=== PATIENT | female | born 1950 | race Caucasian/White ===

== ENCOUNTER 2019-10-31 04:59 | Observation (INO) ==
--- NOTE | 2019-10-17 14:44 | PAT Medication Instructions ---
Medication Instructions Date of Service October 17, 2019 Home Medications alprazolam 0.25 mg tablet 0.25 mg PO BID PRN diltiazem HCl 180 mg capsule,extended release 24 hr, controlled 180 mg PO QAM escitalopram oxalate 10 mg tablet 10 mg PO QAM hydrochlorothiazide 50 mg tablet 50 mg PO QAM pantoprazole 40 mg tablet,delayed release 40 mg PO QAM cyanocobalamin (vitamin B-12) 1,000 mcg PO QAM metformin 500 mg PO QAM potassium chloride [Klor-Con 10] 20 meq PO BID DO NOT take the morning of surgery hydrochlorothiazide 50 mg tablet 50 mg PO QAM cyanocobalamin (vitamin B-12) 1,000 mcg PO QAM metformin 500 mg PO QAM potassium chloride [Klor-Con 10] 20 meq PO BID Take morning of surgery With a small sip of water, OTHERWISE NOTHING TO EAT OR DRINK AFTER MIDNIGHT: alprazolam 0.25 mg tablet 0.25 mg PO BID PRN (if needed) diltiazem HCl 180 mg capsule,extended release 24 hr, controlled 180 mg PO QAM escitalopram oxalate 10 mg tablet 10 mg PO QAM pantoprazole 40 mg tablet,delayed release 40 mg PO QAM Take evening before surgery alprazolam 0.25 mg tablet 0.25 mg PO BID PRN (if needed) potassium chloride [Klor-Con 10] 20 meq PO BID Other Notes If you have any questions please call us at [phone] or [phone] or [phone] or [phone]
--- NOTE | 2019-10-18 12:43 | Anesthesiology Consultation ---
Date of Service October 18, 2019 Assessment & Plan (1) Encounter for pre-operative examination: COVID Status: As of 10/17 [facility] assessment, patient denies travel to endemic area, known exposure/sick contacts, or symptoms of COVID19. Preoperative COVID19 testing to be completed on 10/26. Chart Review Chart Review: Acceptable Risk for Surgery and Patient seen in Pre Admission Testing Teaching & Discussion Instructed NPO after midnight before surgery, except medications with 15 cc of water. Medication instructions provided according to the [facility] guidelines. History Surgery Operation Date: 10/31/19 07:15 Proposed Procedures p Right Total Knee Arthroplasty - Alberto Fonseca DO Height/Weight Height: 5 ft 5 in Weight: 82.9 kg Allergies Allergy/AdvReac Type Severity Reaction Status Date / Time No Known Allergies Allergy Verified 10/13/19 09:07 Medications Home Medications Medication Instructions Recorded Confirmed Last Taken alprazolam 0.25 mg tablet 0.25 mg PO BID PRN 07/19/19 10/13/19 Unknown diltiazem HCl 180 mg 180 mg PO QAM 07/19/19 10/13/19 Unknown capsule,extended release 24 hr, controlled escitalopram oxalate 10 mg tablet 10 mg PO QAM 07/19/19 10/13/19 Unknown hydrochlorothiazide 50 mg tablet 50 mg PO QAM 07/19/19 10/13/19 Unknown pantoprazole 40 mg tablet,delayed 40 mg PO QAM 07/19/19 10/13/19 Unknown release cyanocobalamin (vitamin B-12) 1,000 mcg PO QAM 10/13/19 10/13/19 Unknown [Vitamin B-12] metformin 500 mg PO QAM 10/13/19 10/13/19 Unknown potassium chloride [Klor-Con 10] 20 meq PO BID 10/13/19 10/13/19 Unknown Past Medical History Medical History (Updated 10/19/19 @ 09:13 by Rohit Oliva) Anxiety Cardiac murmur Patient reports remote h/o echo, ~2004. Very soft I/ mitral area on exam at [facility]. Chronic vomiting reports vomiting 2-3 x per week after eating x 3 years r/t delayed esophageal emptying Depression Esophageal abnormality delayed esophageal emptying History of gastric ulcer HTN (hypertension) Osteoarthritis Prediabetes on Metformin Tinnitus Exercise / Class Metabolic Activity II 4-5 Yardwork/Stairs/Walk up hill (Denies CP or SOB with 1 FOS) Past Family History Family History Mother Diabetes Other No family history of adverse response to anesthesia Past Surgical History Surgical History H/O tubal ligation History of arthroscopy of left knee History of bladder suspension procedure History of colonoscopy History of D&C History of esophagogastroduodenoscopy (EGD) History of gastric bypass History of tooth extraction Hx of breast reduction, elective Past Anesthesia History No Hx of Anesthesia Complications and No Family Hx of Anesthesia Complications History of PONV No Hx of PONV and No Hx of Motion Sickness Social History Smoking Status: Never smoker Do You Dip or Chew Tobacco: No Hx Alcohol Use: No Hx Substance Use: No substance use type: does not use Review of Systems Pt denies any recent chest pain, shortness of breath, palpitations, cough, fever or URI. +vomiting and +reflux, chronic Physical Exam Vital Signs BP: 131/79 P: 73bpm SPO2: 98% RA T: 98.1 F R: 16 ENMT Mouth: + dental restorations (rear L molar capped) and + chipped teeth (front incisors); no loose teeth Thyromental Distance: > or= 3.5 Finger Breadths (3.5) Mallampati Class: II Neck normal visual inspection; neck extension not limited Respiratory normal respiratory effort Auscultation: lungs clear to auscultation bilaterally Cardiovascular Rate/Rhythm: regular rate and regular rhythm Heart Sounds: + murmur (I/ systolic mitral area) Extremities: no edema Testing Laboratory Results 10/18/19 12:35 10/18/19 12:35 PT 10.8 Seconds (9.0-12.0) 10/18/19 12:35 INR 1.0 (0.9-1.1) 10/18/19 12:35 APTT 26.8 Seconds (21.0-31.0) 10/18/19 12:35 Hemoglobin A1c 5.9 % (4.5-5.6) H 10/18/19 12:35 Blood Type O Positive 10/18/19 12:35 Antibody Screen NEGATIVE 10/18/19 12:35 Electrocardiogram Date: 10/18/19 Findings: + SB @ (58bpm with 1st degree AV block) Low voltage QRS. Chest X-Ray Date: 10/18/19 Findings: + NAD
[2019-10-18 13:07] LABS: Basophils # (auto) 0.02 K/uL (0-0.2); Basophils % (auto) 0.4 %; Eosinophils # (auto) 0.07 K/uL (0-0.5); Eosinophils % (auto) 1.3 %; Hematocrit (blood only) 41.9 % (37-47); Immature Granulocytes # (auto) 0.01 K/uL (0.00-0.02); Immature Granulocytes % (auto) 0.2 %; Lymphocytes # (auto) 2.05 K/uL (1.2-3.4); Lymphocytes % (auto) 37.8 %; Mean Corpuscular Hemoglobin 29.9 pg (25-34); Mean Corpuscular Hgb Conc 33.4 g/dL (32-36); Mean Corpuscular Volume 89.5 fL (80-100); Mean Platelet Volume 11.8 fL (7.4-10.4); Monocytes % (auto) 9.2 %; Neutrophils # (auto) 2.77 K/uL (1.4-6.5); Neutrophils % (auto) 51.1 %; Platelet Count 225 K/uL (130-400); RDW Coefficient of Variation 15.1 % (11.5-14.5); RDW Standard Deviation 48.8 fL (36.4-46.3); Red Blood Count 4.68 M/uL (4.2-5.4); White Blood Count 5.42 K/uL (4.8-10.8)
[2019-10-18 13:20] LABS: Partial Thromboplastin Time 26.8 Seconds (21.0-31.0); Prothrombin Time 10.8 Seconds (9.0-12.0)
[2019-10-18 13:24] LABS: Estimated Average Glucose 123 mg/dl; Hemoglobin A1C 5.9 % (4.5-5.6)
--- NOTE | 2019-10-18 13:46 | XRay Report ---
XR chest Pre-admission PA/Lat HISTORY: 69 years-old Female pat preoperative exam. No acute chest complaints COMPARISON: None TECHNIQUE: PA and lateral views of the chest FINDINGS: Cardiomediastinal and hilar silhouettes are within normal limits. No pneumothorax, pleural effusion, airspace consolidation or overt pulmonary edema. Bones of the chest are grossly intact. Surgical clip s project over the epigastric distribution. IMPRESSION: No acute process. ACT 112: Negative or not required by law. The above report was generated using voice recognition software. It may contain grammatical, syntax o r spelling errors. Electronically signed by: Foster Mansfield M.D. 10/18/2019 1:44 PM
[2019-10-18 14:44] LABS: BUN Creatinine Ratio 18.1 (10-20); Calcium 9.4 mg/dl (8.5-10.1); Creatinine Clr Calc Pharmacy 66.4 ml/min; Est GFR (Non-African American) 69.9; Potassium 3.2 mmol/L (3.5-5.1)
--- NOTE | 2019-10-19 06:03 | Electrocardiogram Report ---
Test Reason : Blood Pressure : / mmHG Vent. Rate : 058 BPM Atrial Rate : 058 BPM P-R Int : 214 ms QRS Dur : 090 ms QT Int : 424 ms P-R-T Axes : 056 039 058 degrees QTc Int : 416 ms Sinus bradycardia with 1st degree A-V block Low voltage QRS Borderline ECG No previous ECGs available Confirmed by Juve Dolan ([id number]) on 10/19/2019 6:03:12 AM Referred By: Alberto Fonseca Confirmed By:Juve Dolan
--- NOTE | 2019-10-30 07:54 | History & Physical Report ---
Date of Service October 30, 2019 Assessment & Plan (1) Osteoarthritis of right knee: We will proceed with a right total knee arthroplasty. Postoperatively she will be started on aspirin for DVT prophylaxis and kept overnight in the hospital for postoperative medical management. She plans to use energy physical therapy upon discharge. Iesha is a low risk for joint replacement surgery. She does not have any major comorbidities. Present on Admission?: Yes History of Present Illness Chief Complaint: Primary osteoarthritis of the right knee Primary Care Provider: Phan Julian is a pleasant 69-year-old female who is been dealing with a 4 to 5-year history of increasing right knee pain. She is difficult time going up and down stairs. X-rays and clinical examination have been diagnostic for advanced osteoarthritis of the right knee. She has failed extensive conservative treatment and has elected to proceed with a right total knee arthroplasty. Allergies Allergy/AdvReac Type Severity Reaction Status Date / Time No Known Allergies Allergy Verified 10/13/19 09:07 Home Medications Home Medications Medication Instructions Recorded Confirmed Type alprazolam 0.25 mg tablet 0.25 mg PO BID PRN 07/19/19 10/13/19 History diltiazem HCl 180 mg 180 mg PO QAM 07/19/19 10/13/19 History capsule,extended release 24 hr, controlled escitalopram oxalate 10 mg tablet 10 mg PO QAM 07/19/19 10/13/19 History hydrochlorothiazide 50 mg tablet 50 mg PO QAM 07/19/19 10/13/19 History pantoprazole 40 mg tablet,delayed 40 mg PO QAM 07/19/19 10/13/19 History release cyanocobalamin (vitamin B-12) 1,000 mcg PO QAM 10/13/19 10/13/19 History [Vitamin B-12] metformin 500 mg PO QAM 10/13/19 10/13/19 History potassium chloride [Klor-Con 10] 20 meq PO BID 10/13/19 10/13/19 History Past Med/Surg History Medical History Anxiety Cardiac murmur Patient reports remote h/o echo, ~2004. Very soft I/ mitral area on exam at [facility]. Chronic vomiting reports vomiting 2-3 x per week after eating x 3 years r/t delayed esophageal emptying Depression Esophageal abnormality delayed esophageal emptying History of gastric ulcer HTN (hypertension) Osteoarthritis Prediabetes on Metformin Tinnitus Surgical History H/O tubal ligation History of arthroscopy of left knee History of bladder suspension procedure History of colonoscopy History of D&C History of esophagogastroduodenoscopy (EGD) History of gastric bypass History of tooth extraction Hx of breast reduction, elective Family History Mother Diabetes Other No family history of adverse response to anesthesia Social History Preferred Language: Luxembourgish Communication Ability: Effective Fleet Driver Required: No Beliefs That Will Affect Care: None Current Living Situation: Spouse and Family Current Living Situation Comment: lives with , dtr, grand dtr Feels Safe at Home: Yes Safety Concerns: Feels Safe At This Time Smoking Status: Never smoker Do You Dip or Chew Tobacco: No ; Second Hand Exposure: Yes (as a child) ; Hx Alcohol Use: No Hx Substance Use: No Review of Systems Review of Systems: All systems reviewed & are unremarkable except as noted in HPI & below Physical Exam Constitutional: WD/WN, vitals as above Eyes: PERRL, conjunctivae normal, anicteric sclerae ENMT: external ear and nose normal, oropharynx normal Neck: trachea midline, no thyromegaly Respiratory: normal respiratory effort Cardiovascular: RRR, no murmur, no edema Gastrointestinal (Abdomen): normal bowel sounds, soft, nontender, no hepatosplenomegaly Musculoskeletal: On physical examination of the right knee there is a trace effusion. There is near full range of motion and no evidence of instability. There is significant tenderness palpation along the medial and lateral joint lines and over the distal femoral condyles. Psychiatric: A+Ox3, euthymic affect Results & Data Results & Data ([facility]) Diagnostic Findings Radiographs of the right knee demonstrate advanced osteoarthritis with joint space narrowing osteophyte formation and [id number] articulation. PG Care Time/CCT Total # of Minutes Spent Total Time Spent with Patient: Total time spent is greater than 50% in coordination of care (as documented) at patient's floor/unit and/or counseling patient: Coding Level of Care Code 12573 Initial Inpt Care Lvl 3 Diagnoses Osteoarthritis of right knee M17.11
[2019-10-31] MEDS ORDERED: dexAMETHasone 4 MG TAB PO SCH (06:00)
[2019-10-31] MEDS ORDERED: LR 60ML/HR IV SCH (06:00)
[2019-10-31] MEDS ORDERED: FAMOTIDINE 20 MG TAB PO SCH (06:00)
[2019-10-31] MEDS ORDERED: ROPIVACAINE 0.5% HCL/PF 150 MG, BUPIVACAINE 0.5% MPF 30 ML, EPINEPHrine 30MG/30ML (OR U... INSTIL SCH (06:00)
[2019-10-31] MEDS ORDERED: LR 500ML BOLUS, THEN 15ML/HR IV SCH (06:00)
[2019-10-31] MEDS ORDERED: CEFAZOLIN 2000MG 2,000 MG/15 ML SYR IV SCH (06:00)
[2019-10-31] MEDS ORDERED: TRANEXAMIC ACID 1,000 MG **IV Intra-op IV SCH (06:00)
[2019-10-31] MEDS ORDERED: GABAPENTIN 300 MG CAP PO SCH (06:00)
[2019-10-31] MEDS ORDERED: ACETAMINOPHEN 500 MG TAB PO SCH (06:00)
[2019-10-31] MEDS ORDERED: TRANEXAMIC ACID 1,000 MG **IV Pre-op IV SCH (06:00)
[2019-10-31] MEDS ORDERED: BUPIVACAINE 0.5 % 5 MG/1 ML PF 10ML VIAL ONE (06:21)
[2019-10-31] MEDS ORDERED: EPINEPHrine INJ 1 MG/ML AMP ONE (06:21)
[2019-10-31] MEDS ORDERED: ROPIVACAINE 0.5% 5 MG/ML 30 ML VIAL ONE (06:22)
[2019-10-31] MEDS ORDERED: MIDAZOLAM HCL 1 MG/ML 2ML VIAL ONE (06:27)
[2019-10-31] MEDS ORDERED: ONDANSETRON INJ 2 MG/ML 2 ML VIAL ONE (06:30)
[2019-10-31] MEDS ORDERED: LIDOCAINE HCL 2% 2 ML VIAL/AMP(20MG/ML) INFIL ONE (06:30)
[2019-10-31] MEDS ORDERED: PROPOFOL IV EMULSION 10 MG/ML 20 ML VIAL IV ONE ×2 (06:30→08:34)
[2019-10-31] MEDS ORDERED: GLYCOPYRROLATE 0.2 MG/ML VIAL ONE (06:30)
[2019-10-31] MEDS ORDERED: DEXAMETHASONE SOD INJ 4 MG/ML VIAL ONE (06:30)
[2019-10-31] MEDS ORDERED: ORTHO JOINT ANESTHETIC ONE (07:00)
[2019-10-31] MEDS ORDERED: HYDROmorphone INJ 1 MG/ML SYRINGE IV PRN (07:29)
[2019-10-31] MEDS ORDERED: ONDANSETRON INJ 2 MG/ML 2 ML VIAL IV PRN ×2 (07:29→10:32)
[2019-10-31] MEDS ORDERED: LABETALOL HCL IV 5 MG/ML 20ML IV PRN (07:29)
[2019-10-31] MEDS ORDERED: ATROPINE SULFATE 0.1 MG/ML 10ML SYR IV PRN (07:29)
[2019-10-31] MEDS ORDERED: ePHEDrine sulfate 50 MG/ML AMP IV PRN (07:29)
[2019-10-31] MEDS ORDERED: MEPERIDINE HCL 25 MG/ML CARP/VIAL IV PRN (07:29)
[2019-10-31] MEDS ORDERED: fentaNYL citrate 100 MCG/2 ML VIAL IV PRN (07:29)
[2019-10-31] MEDS ORDERED: PHENYLEPHRINE 100MCG/ML 5ML SYR IV PRN (07:29)
--- NOTE | 2019-10-31 09:00 | Operative Report ---
PG Post Operative Report Pre & Post Diagnosis Operation Date: 10/31/19 07:15 Pre-Op Diagnosis: Degenerative Joint Disease Right Knee Post-Op Diagnosis: Degenerative Joint Disease Right Knee I identified the patient and participated in the time-out.: Yes Procedure Operation Date: 10/31/19 07:15 Actual Procedures p Right Total Knee Arthroplasty(Right) - Alberto Fonseca DO Surgeon Alberto Fonseca DO Assistant Prosecuting Attorney Alberto Manuel PAC Estimated Blood Loss 10 Findings Consistent with Post-Op Diagnosis Specimens Right femoral and tibial bone Complications none Disposition Disposition: Recovery Room Indications Iesha is a pleasant 69-year-old female who presented my office with increasing right knee pain. X-rays and clinical examination were diagnostic for advanced osteoarthritis of the right knee. After failing conservative treatment, she elected proceed with a right total knee arthroplasty. Description of Procedure Implants used: I used a [employer] Persona total knee arthroplasty system with a size 11 narrow femur, F tibia, 32 patella, and a size 11 medial congruent polyethylene bearing. All components were cemented in place with Palacos G cement. Iesha arrived [facility] for the above procedure. She was seen in the preoperative holding area and the operative extremity was identified and signed. She was given a preoperative antibiotic, TXA, a spinal anesthetic a nd an adductor nerve block. She was taken back to the operating room and laid on the table in supine position. She was given basic sedation. The operative knee was then prepped and draped in sterile fashion. A timeout was done, and the patient and the operative extremity was properly identified. A midline incision was made directly over the patella. Dissection was taken down to the extensor mechanism. A subvastus arthrotomy was used. The medial retinaculum was released and the fat pad was mostly excised. The knee was flexed and the ACL, PCL, and meniscus were removed. A drill was sent down the center of the femoral canal followed by an intramedullary henrik. Off that henrik a distal femoral cutting block was placed. 9 mm was resected off the distal femur at 5 of valgus. A posterior referencing AP sizing guide was then placed on the distal femur. The femur measured to be a size 11 narrow. 2 drill holes were placed in 3 of external rotation. A 4-in-1 cutting block was then impacted into place. Anterior, posterior, and chamfer cuts were then made. The proximal tibia was then exposed. An external tibial alignment guide was placed. A tibial cut guide was then anchored in place to resect 2 mm off the low medial side. The proximal tibia was then resected. The tibia measured to be a size F. The tibial plate was then placed in the appropriate rotation and the tibia was drilled and punched. The posterior aspect of the knee was then opened up and any additional meniscus fragments and osteophytes were removed. Trial components were then placed. I used a size 11 medial congruent polyethylene insert. The knee was brought through a full range of motion and felt to be stable. The patella was then everted and 8 mm was resected off the posterior aspect of the patella. The patella measured to be a size 32. 3 peg holes were then drilled. A trial patella was placed. The knee was once again brought through a full range of motion and felt to be stable. Trial components were then removed. The surrounding soft tissues were injected with 100 cc of an orthopedic pain control cocktail. All components were then cemented into place with Palacos G cement. The final polyethylene insert was then snapped into place and the anterior bar was locked. Once cement was dry the tourniquet was deflated. Hemostasis was obtained. A dilute betadyne lavage was then done for 3 minutes. The joint was then irrigated with normal saline solution. The subvastus arthrotomy was then closed with #1 Vicryl suture. The skin was closed with 2-0 Vicryl, 3-0V lock suture, and ron. A soft compressive dressing was placed. She was then transferred to a hospital bed and taken to the postanesthesia care unit in stable condition. She tolerated the procedure well. Alberto Manuel PA-C, was present for the entire procedure. He was critical for patient positioning, prepping, draping, retraction exposure, wound closure and application of sterile dressing. I attest to the content of the Intraoperative Record and any orders documented therein. Any exceptions are noted below.
--- NOTE | 2019-10-31 09:45 | XRay Report ---
TWO VIEWS RIGHT KNEE CLINICAL HISTORY: Postoperative examination. FINDINGS: AP and crosstable lateral portable views of the right knee are obtained. A right knee arthr oplasty is in near anatomic alignment. There has been undersurface remodeling of the patella. No acut e fracture is seen. There are expected postoperative changes around the knee including skin clips, so ft tissue edema, and subcutaneous gas. IMPRESSION: Expected postoperative changes status post right knee arthroplasty. No acute fracture is seen. ACT 112: Negative or not required by law. Electronically signed by: Ivan Tirado M.D. 10/31/2019 9:43 AM
--- NOTE | 2019-10-31 09:52 | Anesthesiology Progress Note ---
Date of Service October 31, 2019 Anesthesia Post Procedure Vital Signs Vital Signs: Temp Pulse Pulse Resp BP Pulse Ox 10/31/19 09:50 36.5 C 63 16 100/51 L 97 10/31/19 09:40 60 16 100/53 L 96 10/31/19 09:30 69 16 97/61 L 96 10/31/19 09:20 66 16 103/51 L 95 10/31/19 09:12 36.5 C 69 16 99/53 L 97 10/31/19 07:13 37.6 C H 10/31/19 06:00 55 L 18 126/63 99 10/31/19 05:31 36.7 C 55 L 18 133/73 99 Transfer of Care Handoff Completed per policy Notes Mental Status: alert / awake / arousable Patient Amnestic to Procedure: Yes Nausea / Vomiting: adequately controlled Pain: adequately controlled Airway Patency, RR, SpO2: stable & adequate BP & HR: stable & adequate Hydration State: stable & adequate Neuraxial Anesthesia: was administered and sensory block is resolving Anesthetic Complications: no major complications apparent and Pt Satisfied with anesthetic care
[2019-10-31] MEDS ORDERED: OXYCODONE HCL IR 5 MG TAB (IMMEDIATE RELEASE) PO PRN (10:32)
[2019-10-31] MEDS ORDERED: NALOXONE HCL 0.4 MG/1 ML VIAL/CARP IV PRN (10:32)
[2019-10-31] MEDS ORDERED: METOCLOPRAMIDE HCL INJ 5 MG/ML 2 ML VIAL IV PRN (10:32)
[2019-10-31] MEDS ORDERED: bisacodyL 10 MG SUPP PR PRN (10:32)
[2019-10-31] MEDS ORDERED: MAGNESIUM HYDROXIDE SUSP 30 ML UDC PO PRN (10:32)
[2019-10-31] MEDS ORDERED: HYDROmorphone INJ 0.5 MG/0.5 ML SYR IV PRN (10:32)
[2019-10-31] MEDS ORDERED: PHARMACY GLYCEMIC MGMT CONSULT PRN (10:44)
--- NOTE | 2019-10-31 11:07 | Pharmacy Report ---
Glycemic Control Consultation - Date of Service October 31, 2019 - Scope Scope: Glycemic Pharmacist consulted for glycemic control and to write orders per [facility] inpatient glycemic control protocol. - Objective Weight: 83.546 kg Accuchecks BSG (last 24hrs): 10/31/19 05:29 POC Glucose 112 H HbA1c: Hemoglobin A1c 5.9 % (4.5-5.6) H 10/18/19 12:35 - Recent Pertinent Medications Outpatient Anti-diabetic Regimen: * Metformin 500mg PO QAM Risk Factors for Insulin Resistance: * Steroids * Recent Surgery * Diet - Assessment & Plan Assessment & Plan: ASSESSMENT: * 69yo T2DM female with excellent outpatient control per recent A1c * Pt is maintained on oral antidiabetic agents as an outpatient (metformin monotherapy) * Oral agents are not recommended for inpatient use d/t drug interactions, changing PO intake, and difficulty titrating for acute hyper/hypoglycemia. ADA recommends re-initiating outpatient oral agents 1-2 days prior to discharge if/when appropriate if they were held on admission. * Will hold oral agents for admission and utilize SQ basal bolus insulin regimen which is the recommended regimen for inpatient glycemic control. * Will initiate weight based insulin dosing for steroid induced hyperglycemia and titrate based on BSG trends. * Will start with conservative dosing since pre-op BSG < 150 PLAN FOR INPATIENT GLYCEMIC CONTROL: * Holding outpatient oral diabetes medications * Steroid induced hyperglycemia * NPH 10 units (~0.2 units/kg) SQ x 1 dose today. May need supplemental dose tomorrow AM with Dexamethasone order - will reassess based on BSGs over the next 24hrs * Bolus insulin- to be used while metformin on hold * NovoLog per scale ACHS or Q6hrs while NPO * Goal Range: Low 100 mg/dL - High 140 mg/dL * Correction Factor: 30 mg/dL/unit * Nutritional / Prandial insulin per carb ratio of 1 unit per 9 grams CHO consumed * Please note that the plan above was derived based on current level of insulin resistance and hospital stress. These recommendations are appropriate for inpatient admission only. Plan of care upon discharge will need to be reassessed to avoid potential outpatient hypo/hyperglycemia. Thank you.
[2019-10-31] MEDS ORDERED: NovoLIN-N (NPH) PER UNIT CHARGE SQ ONE (11:30)
[2019-10-31] MEDS ORDERED: GLUCOSE 10 TABS/TUBE PO PRN (12:15)
[2019-10-31] MEDS ORDERED: CARBOHYDRATES FOR HYPOGLYCEMIA PO PRN (12:15)
[2019-10-31] MEDS ORDERED: DEXTROSE 50% 50 ML SYRINGE IV PRN (12:15)
[2019-10-31] MEDS ORDERED: GLUCOSE 40% GEL 15 GM TUBE PO PRN (12:15)
[2019-10-31] MEDS ORDERED: GLUCAGON FOR INJ 1 MG VIAL IM PRN (12:15)
[2019-10-31] MEDS: SODIUM CHLORIDE 0.9% 1000ML 1,000 ML IV SCH ×2 (12:34→22:49)
[2019-10-31] MEDS: KETOROLAC TROMETHAMINE 15 MG/ML VIAL IV SCH ×3 (12:35→23:46)
[2019-10-31] MEDS: INSULIN ASPART 100 UNITS/ML 3 ML PEN SC SCH ×3 (13:21→21:10)
[2019-10-31] MEDS: ACETAMINOPHEN 500 MG TAB PO SCH ×2 (14:17→21:13)
[2019-10-31] MEDS: CEFAZOLIN 2000MG 2,000 MG/15 ML SYR IV SCH ×2 (17:24→23:48)
[2019-10-31] MEDS: POTASSIUM CHLORIDE 20 MEQ TABCR PO SCH (21:13)
[2019-10-31] MEDS: DOCUSATE SODIUM 100 MG CAP PO SCH (21:13)
[2019-10-31] MEDS: SENNA 8.6 MG TAB PO SCH (21:13)
[2019-10-31] MEDS: ASPIRIN 81 MG ECTAB PO SCH (21:13)
[2019-10-31] MEDS: ALPRAZolam 0.25 MG TABLET PO PRN (23:58)
[2019-11-01] MEDS: KETOROLAC TROMETHAMINE 15 MG/ML VIAL IV SCH ×4 (05:31→23:53)
[2019-11-01] MEDS: ACETAMINOPHEN 500 MG TAB PO SCH ×3 (05:31→22:15)
--- NOTE | 2019-11-01 07:00 | Orthopedic Progress Note ---
Date of Service November 01, 2019 Assessment & Plan (1) History of total right knee replacement: Overall she is doing very well. She is not having too much pain in the right knee. She is on aspirin for DVT prophylaxis. She will be seen by physical therapy later today. We will keep her in the hospital today for pain control and therapy for her knee. I will see her tomorrow morning and likely discharge her to home. Present on Admission?: Yes Subjective Iesha was seen and examined at bedside this morning. Overall she is doing very well. She is not in too much pain in the right knee. She has been up and a mbulating around the room. She has no complaints. Physical Exam Musculoskeletal: On physical examination of the right knee, the dressing is clean and dry. Her legs out in full extension. She has active dorsiflexion and plantarflexion of her right ankle. Sensations intact throughout. Results & Data ([facility]) Vital Signs (Past 12 Hours) Vital Signs Temp Pulse Resp BP Pulse Ox 11/01/19 03:34 36.5 C 71 15 131/76 96 10/31/19 23:48 36.4 C L 62 14 131/81 96 10/31/19 19:32 36.3 C L 66 16 137/81 97 Laboratory Results H & H 10/18/19 Range/Units 12:35 Hgb 14.0 (12.0-16.0) g/dL Hct 41.9 (37-47) % Coagulation 10/18/19 Range/Units 12:35 INR 1.0 (0.9-1.1) Diagnostic Findings Postoperative x-rays of the right knee show the prosthesis to be in anatomic alignment without any evidence of fracture, dislocation, or loosening. PG Care Time/CCT Total # of Minutes Spent Total Time Spent with Patient: Total time spent is greater than 50% in coordination of care (as documented) at patient's floor/unit and/or counseling patient: Coding Level of Care Code None Diagnoses History of total right knee replacement Z96.651
[2019-11-01 07:12] LABS: Hematocrit (blood only) 37.2 % (37-47); Hemoglobin 12.3 g/dL (12.0-16.0); Mean Corpuscular Hemoglobin 29.7 pg (25-34); Mean Corpuscular Hgb Conc 33.1 g/dL (32-36); Mean Corpuscular Volume 89.9 fL (80-100); Platelet Count 215 K/uL (130-400); RDW Standard Deviation 49.4 fL (36.4-46.3); Red Blood Count 4.14 M/uL (4.2-5.4); White Blood Count 13.12 K/uL (4.8-10.8)
[2019-11-01 07:41] LABS: BUN Creatinine Ratio 16.1 (10-20); Calcium 8.5 mg/dl (8.5-10.1); Creatinine Clr Calc Pharmacy 71.7 ml/min; Est GFR (African American) 88.5; Est GFR (Non-African American) 76.4; Potassium 3.8 mmol/L (3.5-5.1)
[2019-11-01] MEDS ORDERED: dexAMETHasone 4 MG TAB PO SCH (08:00)
[2019-11-01] MEDS: POTASSIUM CHLORIDE 20 MEQ TABCR PO SCH ×2 (08:44→20:41)
[2019-11-01] MEDS: MULTIVITAMIN TAB PO SCH (08:44)
[2019-11-01] MEDS: ASPIRIN 81 MG ECTAB PO SCH ×2 (08:45→20:41)
[2019-11-01] MEDS: PANTOprazole 40 MG TAB PO SCH (08:45)
[2019-11-01] MEDS: ESCITALOPRAM OXALATE 10 MG TAB PO SCH (08:45)
[2019-11-01] MEDS: hydroCHLOROthiazide 25 MG TAB PO SCH (08:45)
[2019-11-01] MEDS: DOCUSATE SODIUM 100 MG CAP PO SCH ×2 (08:45→20:41)
[2019-11-01] MEDS: dilTIAZem HCL 180 MG CAPCR PO SCH (08:45)
[2019-11-01] MEDS: INSULIN ASPART 100 UNITS/ML 3 ML PEN SC SCH ×4 (08:49→21:50)
[2019-11-01] MEDS ORDERED: NovoLIN-N (NPH) PER UNIT CHARGE SQ ONE (09:00)
--- NOTE | 2019-11-01 13:29 | Pharmacy Report ---
Pharmacy Glycemic Short Note 2 - Date of Service November 01, 2019 - Glycemic Short BSG Results (Last 24 hours): OUTPATIENT ANTIDIABETIC REGIMEN: * Metformin 500 mg PO QAM * A1c = 5.9% from 10/18/19 ASSESSMENT: * 69yo T2DM female with excellent outpatient control per recent A1c * Pt is POD #1 from R TKA, ordered T2DM diet, received dexamethasone 8 mg PO preop yesterday * Used a total of 14 units of insulin yesterday: * 10 units basal * 4 units bolus * BSGs ranged 141 - 151 mg/dL * Fasting BSG this AM was 155 mg/dL. Patient received a POD #1 dexamethasone dose of 8 mg PO this morning. Gave the patient another 10 units of NPH to cover this dexamethasone dose. Lunchtime BSG dropped to 78 mg/dL today. * Do not expect patient to require any more basal insulin during admission. Will not order. PLAN FOR INPATIENT GLYCEMIC CONTROL: * Hold outpatient oral diabetes medications * Basal insulin * NPH 10 units SQ x 1 this AM * Bolus insulin * NovoLog per scale ACHS or Q6hrs while NPO * Goal Range: Low 100 mg/dL - High 140 mg/dL * Correction Factor: 30 mg/dL/unit * Nutritional / Prandial insulin per carb ratio of 1 unit per 9 grams CHO consumed PLAN FOR DISCHARGE: * A1c = 5.9% demonstrating excellent outpatient T2DM control on Metformin Monot herapy * Recommend continuing outpatient regimen of metformin monotherapy upon discharge. Could consider discontinuing all anti-hyperglycemic medications and attempting diet controlled given patient's age and comorbidities.
[2019-11-01] MEDS: SENNA 8.6 MG TAB PO SCH (20:41)
[2019-11-01] MEDS: ALPRAZolam 0.25 MG TABLET PO PRN (22:16)
[2019-11-02] MEDS: ACETAMINOPHEN 500 MG TAB PO SCH (05:34)
[2019-11-02] MEDS: KETOROLAC TROMETHAMINE 15 MG/ML VIAL IV SCH (05:34)
--- NOTE | 2019-11-02 06:37 | Orthopedic Progress Note ---
Date of Service November 02, 2019 Assessment & Plan (1) History of total right knee replacement: Overall she is doing very well. She is not having much pain in the right knee. She will be seen by physical therapy again today for ambulation and range of motion exercises. She is on aspirin for DVT prophylaxis. She can be discharged home later today. She will follow-up with orthopedics in 2 weeks. Present on Admission?: Yes Subjective Iesha was seen and examined at bedside this morning. Overall she is doing very well. She is not having much pain in the right knee. She worked well yesterday with physical therapy. She has no complaints. Physical Exam Musculoskeletal: On physical examination of the right knee, the dressing is clean and dry. Her leg is out in full extension. She is neurovascular intact. Results & Data ([facility]) Vital Signs (Past 12 Hours) Vital Signs Temp Pulse Resp BP Pulse Ox 11/01/19 23:45 36.5 C 68 16 115/74 95 PG Care Time/CCT Total # of Minutes Spent Total Time Spent with Patient: Total time spent is greater than 50% in coordination of care (as documented) at patient's floor/unit and/or counseling patient: Coding Level of Care Code None Diagnoses History of total right knee replacement Z96.651
--- NOTE | 2019-11-02 06:39 | Discharge Summary ---
Date of Service November 02, 2019 Admission HPI Per Admitting Provider Iesha is a pleasant 69-year-old female who is been dealing with a 4 to 5-year history of increasing right knee pain. She is difficult time going up and down stairs. X-rays and clinical examination have been diagnostic for advanced osteoarthritis of the right knee. She has failed extensive conservative treatment and has elected to proceed with a right total knee arthroplasty. Principal Diagnosis Right total knee arthroplasty Discharge Data Allergies Allergy/AdvReac Type Severity Reaction Status Date / Time No Known Allergies Allergy Verified 10/31/19 05:30 Consultations 10/31/19 10:32 Consult Case Management - Discharge Planning Routine Procedures Performed Operation Date: 10/31/19 07:15 Actual Procedures p Right Total Knee Arthroplasty(Right) - Alberto Fonseca DO Ordered Studies 10/31/19 05:00 US - OR guided needle placemen Routine Hospital Course (1) History of total right knee replacement: On October 31, 2019 Iesha arrived at [facility] and underwent a right total knee arthroplasty without complication. She had a spinal anesthetic. Postoperatively she was started on aspirin for DVT prophylaxis and transferred to the general orthopedic floors. Her hospital course was uneventful. On postop day #1 her H&H was stable and her pain was well controlled. She was able to participate well with physical therapy doing ambulation and range of motion exercises. On postop day #2 she continued to do well. Her pain was well controlled and she was seen once again by physical therapy. She was then discharged to home. She will follow-up with orthopedics in 2 weeks. Total Time Total Time Spent Total Time Spent (In Minutes): 20 Discharge Plan Discharge Items Patient Disposition: Home - Home Health Services Reason For Visit: Degenerative Joint Disease Right Knee Discharge Diagnosis: Right knee replacement Activity: As commented below Non-emergency contact: Surgeon Call non-emergency contact if: your wound has increased redness and your wound has increased drainage Follow-up/Referrals: Phan Quinn [Primary Care Provider] - Diet: Carb Consistent or DM2 Addtl Attending Provider Instructions: Activity and Therapy Recommendations: * If you are using [facility] then therapy will be provided at your home until they feel you have accomplished all of your goals. * If you are using [facility] then Physical Therapy will be provided until they feel you are ready to start Outpatient Physical Therapy. * If you are not using home therapy then Outpatient Physical Therapy should start about 3-5 days from your day of surgery. Therapy will last about 6-10 weeks * It is important not to put a pillow under your knee when you are relaxing or sleeping. It is just as important to make sure you are getting your knee perfectly straight as it is to regain your knee bend. * You were shown a series of exercises in the hospital. Do these exercises three times each day including the exercises you were shown in physical therapy. * Get up and walk several times each day. For the first four weeks, try not to stand or walk for more than one hour at a time. If you do stand or walk for more than one hour, you will not hurt anything, but your leg will likely swell. * As you feel comfortable, you may change from the walker or crutches to a cane and then to independent walking. Medications: * Narcotic You will likely be sent home from the hospital with a prescription for the narcotic pain medication that worked best throughout your stay. * Aspirin Most patients will be required to take Aspirin 81mg twice a day for 6 weeks after surgery. This is obtained [id number] and a prescription is not necessary. * Other medications may be prescribed for specific circumstances. If you have any questions, please call the office at . * Resume previous home medications unless otherwise instructed TEDs/Elastic Stockings: The white elastic stockings help limit swelling and prevent blood clots from forming in your legs.~ The more you wear them, the more they work. Wear them for six weeks. Dressing Care: Leave the silver dressing in place for 7 days. After 7 days you may remove the dressing. If the incision is not draining then you may leave the ron open to air. If there is a little bit of drainage or if the ron are getting stuck on your clothing then cover the incision with a dry dressing. The ron will be removed at your 2 week follow-up appointment. Showering: You may shower with the silver dressing in place. Do not scrub or soak the dressing. After 7 days you may remove the dressing and shower with the ron exposed. Let the soapy shower water run over the ron and pat them dry. Do not scrub or soak the incision. Things To Watch For: * Drainage from the incision site that occurs more than one week after your surgery. * Increased redness at the incision site. * Fever above 102 degrees Fahrenheit. * Unusual chest pain or shortness of breath. * Call [facility] at with any of the above problems Follow-Up Visit: Follow-up with Dr. Fonseca's PA (Alberto Manuel) 2-3 weeks after your day of surgery. He will remove your ron and answer any questions. If you have any additional questions or concerns, Dr Fonseca is usually in the office at the same time and will be available An appointment was probably scheduled when you signed-up for surgery in the office. If you have any questions call Office Instructions: More detailed instructions as well as Frequently Asked Questions were provided in a folder by our office when you signed-up for surgery. Please review these instructions when you get home. If you have any further questions or concerns, please feel free to call the office at [phone] Pending Studies at Discharge: No Stand-Alone Forms: [facility], Smoking Cessation Medications and DC Order Prescriptions: New oxycodone 5 mg Tablet 5 mg PO Q4H PRN (Reason: pain) Qty: 30 RF: 0 aspirin 81 mg Tablet,Delayed Release (Dr/Ec) 81 mg PO BID 42 Days Qty: 0 RF: 0 Continued diltiazem HCl 180 mg capsule,ext.rel 24h degradable 180 mg PO QAM RF: 0 hydrochlorothiazide 50 mg tablet 50 mg PO QAM RF: 0 alprazolam [Xanax] 0.25 mg tablet 0.25 mg PO BID PRN (Reason: Anxiety) RF: 0 escitalopram oxalate [Lexapro] 10 mg tablet 10 mg PO QAM RF: 0 pantoprazole 40 mg tablet,delayed release (DR/EC) 40 mg PO QAM RF: 0 metformin 500 mg Tablet 500 mg PO QAM RF: 0 cyanocobalamin (vitamin B-12) [Vitamin B-12] 1,000 mcg Tablet 1,000 mcg PO QAM RF: 0 potassium chloride [Klor-Con 10] 10 mEq Tablet Extended Release 20 meq PO BID RF: 0 Discharge Orders: Discharge Order (Routine); Ordered 11/02/19 Ordered By: Alberto A Raymundo Admission Data Admit Date/Time: 10/31/19 09:14 Attending Provider: Alberto Fonseca Admit Provider: Alberto Fonseca Primary Care Provider: Phan Quinn Coding Level of Care Code D/C Day Management <30 mins Diagnoses History of total right knee replacement Z96.651
[2019-11-02] MEDS: DOCUSATE SODIUM 100 MG CAP PO SCH (09:01)
[2019-11-02] MEDS: ASPIRIN 81 MG ECTAB PO SCH (09:01)
[2019-11-02] MEDS: POTASSIUM CHLORIDE 20 MEQ TABCR PO SCH (09:01)
[2019-11-02] MEDS: ESCITALOPRAM OXALATE 10 MG TAB PO SCH (09:01)
[2019-11-02] MEDS: PANTOprazole 40 MG TAB PO SCH (09:02)
[2019-11-02] MEDS: MULTIVITAMIN TAB PO SCH (09:02)
[2019-11-02] MEDS: dilTIAZem HCL 180 MG CAPCR PO SCH (09:02)
[2019-11-02] MEDS: hydroCHLOROthiazide 25 MG TAB PO SCH (09:02)
[2019-11-02] MEDS: INSULIN ASPART 100 UNITS/ML 3 ML PEN SC SCH (09:03)
== END 2019-11-02 11:53 | disposition home health service (06) ==
LOC: ASU 04:59 → 3E 04:59

== ENCOUNTER 2021-10-17 08:41 | Observation (INO) ==
--- NOTE | 2021-09-15 10:23 | PAT Medication Instructions ---
Medication Instructions Date of Service September 15, 2021 Home Medications alprazolam 0.25 mg tablet (Xanax) 0.25 mg PO BID PRN hydrochlorothiazide 50 mg tablet 50 mg PO QAM pantoprazole 40 mg tablet,delayed release 40 mg PO QAM cyanocobalamin (vitamin B-12) 1,000 mcg tablet (Vitamin B-12) 1,000 mcg PO QAM acetaminophen 650 mg tablet,extended release 1,300 mg PO Q12H PRN linagliptin 5 mg tablet (Tradjenta) 5 mg PO QAM multivitamin 1 tab PO QAM promethazine 12.5 mg tablet 12.5 mg PO TID PRN rivaroxaban 20 mg tablet (Xarelto) 20 mg PO QAM Continue as directed promethazine 12.5 mg tablet 12.5 mg PO TID PRN(if needed) ASK your prescriber and surgeon rivaroxaban 20 mg tablet (Xarelto) 20 mg PO QAM(in order for spinal or epidural anesthesia, Xarelto needs to be stopped 72 hours/3 days before surgery. Please check if okay with doctor that prescribes this to you) DO NOT take the morning of surgery hydrochlorothiazide 50 mg tablet 50 mg PO QAM cyanocobalamin (vitamin B-12) 1,000 mcg tablet (Vitamin B-12) 1,000 mcg PO QAM linagliptin 5 mg tablet (Tradjenta) 5 mg PO QAM multivitamin 1 tab PO QAM Take morning of surgery With a small sip of water, OTHERWISE NOTHING TO EAT OR DRINK AFTER MIDNIGHT: alprazolam 0.25 mg tablet (Xanax) 0.25 mg PO BID PRN(if needed) pantoprazole 40 mg tablet,delayed release 40 mg PO QAM acetaminophen 650 mg tablet,extended release 1,300 mg PO Q12H PRN(okay to take up to 4 hours prior to surgery if needed) Take evening before surgery alprazolam 0.25 mg tablet (Xanax) 0.25 mg PO BID PRN(if needed) acetaminophen 650 mg tablet,extended release 1,300 mg PO Q12H PRN(if needed) Other Notes If you have any questions please call us at [phone] or [phone] or [phone] or [phone]
--- NOTE | 2021-09-16 12:56 | Anesthesiology Consultation ---
Date of Service September 16, 2021 Assessment & Plan (1) Encounter for pre-operative examination: Chart Review Chart Review: Pending: Refer to Additional Notes / Consult section (pending PCP clearance scheduled 09/29/21 and preop Covid testing results ) and Patient seen in Pre Admission Testing - Awaiting PCP clearance scheduled 09/29/2021 (will write note to PCP re: anemia, elevated coags and abnormal CXR) - will await response -Coags elevated on preop labs (pt takes Eliquis daily- did educate patient that Eliquis will need to be held 72 hours prior to surgery in order to get SAB (pt checking with provider)- will order coags DOS to ensure coags have improved - Check BSG AM DOS Per PAT appt on 09/16/21, patient denies any recent travel or large group activities. No known Covid positive exposures or Covid related symptoms. No known Covid infection in the past 90 days. Pt is vaccinated for Covid. Preop Covid testing scheduled 10/15/21= will await results. Educated on importance of self quarantining, social distancing and wearing mask in public for the patient one week prior to surgery and after Covid testing done Last seen by cardio 12/26/20= patient seen for management of aortic stenosis, aortic regurgitation, mitral regurgitation. Has been doing clinically well. History of palpitations in Juneid do 48-hour Holter monitorno episodes of atrial fibrillation and was essentially unremarkable. Echo done at that time showed mild to moderate AR with mild aortic stenosis. She is active and able to perform activities of daily living without limitation. Exercise capacity is also unchanged. Continue risk factor modification for primary CAD. BP well controlled. Last echo in July 2020 reviewedwe will repeat echo in 2 years for surveillance. Follow-up in 1 year. (Discussed case with Dr. Child- pt stable at cardio appt- does not need additional follow up) Right TKA 10/31/19= Done under SAB at L3-4 with 1 attempt. Teaching & Discussion Pre-Anesthesia Teaching/Discussion Notes: Instructed NPO after midnight before surgery,except medications with 15 cc of water. Medication instructions provided according to the PAT guidelines. History Surgery Operation Date: 10/17/21 09:20 Proposed Procedures p Left Total Knee Arthroplasty - Alberto Fonseca, DO Height/Weight Height: 5 ft 4 in Weight: 83.9 kg Allergies Allergy/AdvReac Type Severity Reaction Status Date / Time No Known Allergies Allergy Verified 09/12/21 10:43 Medications Home Medications Medication Instructions Recorded Confirmed Last Taken alprazolam 0.25 mg tablet (Xanax) 0.25 mg PO BID PRN 07/19/19 09/12/21 10/31/19 03:30 hydrochlorothiazide 50 mg tablet 50 mg PO QAM 07/19/19 09/12/21 10/30/19 09:00 pantoprazole 40 mg tablet,delayed 40 mg PO QAM 07/19/19 09/12/21 10/31/19 03:30 release cyanocobalamin (vitamin B-12) 1,000 mcg PO QAM 10/13/19 09/12/21 10/24/19 09:00 1,000 mcg tablet (Vitamin B-12) acetaminophen 650 mg 1,300 mg PO Q12H PRN 09/12/21 09/12/21 Unknown tablet,extended release linagliptin 5 mg tablet (Tradjenta) 5 mg PO QAM 09/12/21 09/12/21 Unknown multivitamin 1 tab PO QAM 09/12/21 09/12/21 Unknown promethazine 12.5 mg tablet 12.5 mg PO TID PRN 09/12/21 09/12/21 Unknown rivaroxaban 20 mg tablet (Xarelto) 20 mg PO QAM 09/12/21 09/12/21 Unknown Past Medical History Medical History (Updated 09/16/21 @ 13:49 by Yarely Parham PA-C) Anxiety Chronic vomiting Reports vomiting 2-3 x per week after eating x 3 years r/t delayed esophageal emptying -usually occurs later in the day Depression Diabetes mellitus, type 2 ON TRADJENTA Glucose - stable DVT (deep venous thrombosis) S/P GB SURGERY (04/2020) -SEDENTARY TIME-PUT ON XARELTO SINCE-NO MORE ISSUES Esophageal abnormality Delayed esophageal emptying -HAS IMPROVED SOMEWHAT History of COVID-19 DX'D 04/26/2021 [facility] [place] SYMPTOMS OF SINUS INFECTION-RECOVERED AT HOME- RESOLVED History of gastric ulcer History of - had recent EGD- no issues HTN (hypertension) Mild aortic stenosis Per cardio records - per 07/2020 ECHO- mild to moderate AR. [place] 1.8cm2 and mean gradient 8mmHg Tinnitus Bilaterally Exercise / Class Metabolic Activity II 4-5 Yardwork/Stairs/Walk up hill (one flight of stairs - no chest pain or SOB ) Past Family History Family History Mother Diabetes Other No family history of adverse response to anesthesia Past Surgical History Surgical History H/O tubal ligation History of arthroscopy of left knee History of bladder suspension procedure History of cholecystectomy 04/26/2020 History of colonoscopy History of D&C History of esophagogastroduodenoscopy (EGD) History of gastric bypass History of tooth extraction History of total right knee replacement (~10/2019) Hx of breast reduction, elective Past Anesthesia History No Hx of Anesthesia Complications and No Family Hx of Anesthesia Complications History of PONV No Hx of PONV and No Hx of Motion Sickness Social History Smoking Status: Never smoker Do You Dip or Chew Tobacco: No Hx Alcohol Use: No Hx Substance Use: No substance use type: does not use Review of Systems Patient denies chest pain, shortness of breath, dyspnea on exertion, reflux, cough, wheezing, palpitations. No hx of seizures, stroke, PA, apnea/snoring. No hx of blood transfusions Physical Exam Vital Signs VITALS BP 111/69 P 75 TEMP 98.5 SP02 99% 16RESP Constitutional no acute distress ENMT Mouth: no TMJ clicking Thyromental Distance: > or= 3.5 Finger Breadths (3.5) Mallampati Class: II Missing side teeth/molars Cap to molar Neck + limited neck extension Respiratory normal respiratory effort; no respiratory distress Auscultation: lungs clear to auscultation bilaterally; no wheezes Cardiovascular Heart Sounds: + murmur (II/ murmur ) Vessels: no carotid bruit Irregular- rate controlled Musculoskeletal Spine: no pain with cervical ROM Extremities: extremities normal to inspection Psychiatric Orientation: alert Lab Results Anesthesia Preop Results Results Anesthesia Widget: WBC 7.45 K/uL (4.8-10.8) 09/16/21 Hgb 10.7 g/dL (12.0-16.0) L 09/16/21 Hct 34.3 % (37-47) L 09/16/21 Plt 287 K/uL (130-400) 09/16/21 Na 140 mmol/L (136-145) 09/16/21 K 3.5 mmol/L (3.5-5.1) 09/16/21 Cl 102 mmol/L (98-107) 09/16/21 CO2 28 mmol/L (21-32) 09/16/21 BUN 10 mg/dl (6-23) 09/16/21 Creat 0.68 mg/dl (0.6-1.2) 09/16/21 Glucose Level 92 mg/dl (70-99(Fasting)) 09/16/21 PT 14.5 Seconds (9.0-12.0) H 09/16/21 PTT 34.8 Seconds (21.0-31.0) H 09/16/21 INR 1.4 (0.9-1.1) H 09/16/21 HA1c 6.3 % (4.5-5.6) H 09/16/21 Blood Type O Positive 09/16/21 Antibody Screen NEGATIVE 09/16/21 Testing Laboratory Results Anemia noted on preop labs (sending note to PCP- surgeon's office also inf ormed) Elevated coags- discussed with Dr. Salinas- will recheck DOS- PCP and surgeon's office also informed Electrocardiogram Date: 09/16/21 SR with PACs at 69bpm. Left posterior facicular block. Cannot rule out inferior infarct, age undetermined. Possible anterior infarct, age undermined When compared to EKG from October 18, 2019PACs are now present per cardiology Chest X-Ray Date: 09/16/21 FINDINGS: No pneumothorax. The heart is normal in size. There are surgical clips within the upper abdomen. The left lung is clear. There is a small hiatus hernia. There is blunting of the right costophrenic sulcus which could represent scarring or a small pleural effusion. This is new from the prior study. IMPRESSION: Blunting of the right costophrenic sulcus which is new from the prior study. This could represent scarring or a small right pleural effusion. (Sent note to PCP to address at PCP clearance appt 09/29/21) Echocardiogram Date: 07/10/20 EF: 55-60% LV Function: normal Other Findings: + diastolic dysfunction (Grade I ); no LVH Left atrial size mildly enlarged Mild to moderate AR. Mild MR. Mild TR. Mil TN. Mild aortic stenosis- [place] 1.8cm2; AV peak velocity 2.1m/s; AV mean gradient 8mmHg
--- NOTE | 2021-10-16 11:52 | History & Physical Report ---
Date of Service October 16, 2021 Assessment & Plan (1) Osteoarthritis of left knee: We will proceed with a left total knee arthroplasty. Postoperatively she will be started on Xarelto for DVT prophylaxis and kept overnight in the hospital for postoperative medical management. She plans [facility]. History of Present Illness Chief Complaint: Osteoarthritis left knee. Primary Care Provider: Phan Julian is a pleasant 71-year-old female who I did a right knee replacement on over a year ago. She has done well with that. Unfortunately, she is dealing with left knee pain. X-rays and clinical examination have been diagnostic for advanced arthritis. After failing conservative treatment, she elected to proceed with a left total knee arthroplasty. . Allergies Allergy/AdvReac Type Severity Reaction Status Date / Time No Known Allergies Allergy Verified 09/12/21 10:43 Home Medications Medication Instructions Recorded Confirmed Type alprazolam 0.25 mg tablet (Xanax) 0.25 mg PO BID PRN 07/19/19 09/12/21 History hydrochlorothiazide 50 mg tablet 50 mg PO QAM 07/19/19 09/12/21 History pantoprazole 40 mg tablet,delayed 40 mg PO QAM 07/19/19 09/12/21 History release cyanocobalamin (vitamin B-12) 1,000 mcg PO QAM 10/13/19 09/12/21 History 1,000 mcg tablet (Vitamin B-12) acetaminophen 650 mg 1,300 mg PO Q12H PRN 09/12/21 09/12/21 History tablet,extended release linagliptin 5 mg tablet (Tradjenta) 5 mg PO QAM 09/12/21 09/12/21 History multivitamin 1 tab PO QAM 09/12/21 09/12/21 History promethazine 12.5 mg tablet 12.5 mg PO TID PRN 09/12/21 09/12/21 History rivaroxaban 20 mg tablet (Xarelto) 20 mg PO QAM 09/12/21 09/12/21 History Past Med/Surg History Medical History Anxiety Chronic vomiting Reports vomiting 2-3 x per week after eating x 3 years r/t delayed esophageal emptying -usually occurs later in the day Depression Diabetes mellitus, type 2 ON TRADJENTA Glucose - stable DVT (deep venous thrombosis) S/P GB SURGERY (04/2020) -SEDENTARY TIME-PUT ON XARELTO SINCE-NO MORE ISSUES Esophageal abnormality Delayed esophageal emptying -HAS IMPROVED SOMEWHAT History of COVID-19 DX'D 04/26/[address] [facility] [place] SYMPTOMS OF SINUS INFECTION-RECOVERED AT HOME- RESOLVED History of gastric ulcer History of - had recent EGD- no issues HTN (hypertension) Mild aortic stenosis Per cardio records - per 07/2020 ECHO- mild to moderate AR. [place] 1.8cm2 and mean gradient 8mmHg Tinnitus Bilaterally Surgical History H/O tubal ligation History of arthroscopy of left knee History of bladder suspension procedure History of cholecystectomy 04/26/2020 History of colonoscopy History of D&C History of esophagogastroduodenoscopy (EGD) History of gastric bypass History of tooth extraction History of total right knee replacement (~10/2019) Hx of breast reduction, elective Family History Mother Diabetes Other No family history of adverse response to anesthesia Social History Smoking Status: Never smoker Second Hand Exposure: Yes ( A CHILD); Hx Alcohol Use: No Hx Substance Use: No Preferred Language: Arabic Communication Ability: Effective Copy Center Specialist Required: No Beliefs That Will Affect Care: None marital status: Current Living Situation: Spouse Current Living Situation Comment: lives with , dtr, grand dtr current occupational status: retired Feels Safe at Home: Yes Assistive Devices: Denture - Upper, Denture - Lower and Glasses Review of Systems All systems reviewed & are unremarkable except as noted in HPI & below. Physical Exam On physical examination of the left knee, she has tenderness palpation over the distal medial femoral condyle and over the medial joint line. She has range of motion from 0 to 120 degrees. No instability. Constitutional WD/WN, vitals as above Eyes PERRL, conjunctivae normal, anicteric sclerae ENMT external ear and nose normal, oropharynx normal Neck trachea midline, no thyromegaly Respiratory normal respiratory effort Cardiovascular RRR, no murmur, no edema Gastrointestinal (Abdomen) normal bowel sounds, soft, nontender, no hepatosplenomegaly Psychiatric A+Ox3, euthymic affect Results & Data Results & Data Laboratory Results . Diagnostic Findings X-rays of the left knee show advanced osteoarthritis with joint space narrowing, osteophyte formation, and [id number] articulation. PG Care Time/CCT Total # of Minutes Spent Total Time Spent with Patient: Total time spent is greater than 50% in coordination of care (as documented) at patient's floor/unit and/or counseling patient: Coding Level of Care Code None Diagnoses Osteoarthritis of left knee M17.12
[~2021-10-17 08:41] MED LIST: ACETAMINOPHEN 500 MG TAB PO SCH; BUPIVACAINE 0.25% 30 ML VIAL ONE; BUPIVACAINE 0.5 % 5 MG/1 ML PF 10ML VIAL ONE; DEXAMETHASONE SOD INJ 4 MG/ML VIAL ONE; EPINEPHrine INJ 1 MG/ML AMP ONE; FAMOTIDINE 20 MG TAB PO SCH; GABAPENTIN 300 MG CAP PO SCH; Ketorolac (*for OR use only*) 30 MG, dexAMETHasone 4 MG, KETAMINE HCL (**OR use only) 1... INFIL SCH; LR 500ML BOLUS, THEN 15ML/HR IV SCH; LR 60ML/HR IV SCH; TRANEXAMIC ACID 1,000 MG **IV Intra-op IV SCH; TRANEXAMIC ACID 1,000 MG **IV Pre-op IV SCH; dexAMETHasone 4 MG TAB PO SCH
--- NOTE | 2021-10-17 09:13 | History & Physical Bridge Note ---
Date of Service October 17, 2021 History & Physical Bridge Note I have examined the patient, reviewed the History & Physical and in the interval since the performance of the History & Physical I have noted the following changes of clinical significance: no changes noted
[2021-10-17] MEDS ORDERED: ceFAZolin 2,000 MG/15 ML IV PUSH IV ONE (09:24)
[2021-10-17 09:52] LABS: Partial Thromboplastin Ratio 0.9; Partial Thromboplastin Time 25.6 Seconds (21.0-31.0)
[2021-10-17] MEDS ORDERED: MIDAZOLAM HCL 1 MG/ML 2ML VIAL ONE (09:59)
[2021-10-17] MEDS ORDERED: PROPOFOL IV EMULSION 10 MG/ML 20 ML VIAL IV ONE ×3 (10:00→12:52)
[2021-10-17] MEDS ORDERED: ORTHO JOINT ANESTHETIC ONE (11:10)
[2021-10-17] MEDS ORDERED: ATROPINE SULFATE 0.1 MG/ML 10ML SYR IV PRN (11:28)
[2021-10-17] MEDS ORDERED: fentaNYL citrate 100 MCG/2 ML VIAL IV PRN (11:28)
[2021-10-17] MEDS ORDERED: ePHEDrine sulfate 50 MG/ML AMP IV PRN (11:28)
[2021-10-17] MEDS ORDERED: ONDANSETRON INJ 2 MG/ML 2 ML VIAL IV PRN ×2 (11:28→14:33)
--- NOTE | 2021-10-17 12:52 | Operative Report ---
PG Post Operative Report Pre & Post Diagnosis Operation Date: 10/17/21 11:10 Pre-Op Diagnosis: Degenerative Joint Disease Left Knee Post-Op Diagnosis: Degenerative Joint Disease Left Knee I identified the patient and participated in the time-out.: Yes Procedure Operation Date: 10/17/21 11:10 Actual Procedures p Left Total Knee Arthroplasty, Cemented(Left) - Alberto Fonseca DO Surgeon Alberto Fonseca DO Insulation Estimator Alberto Manuel PAC Estimated Blood Loss 20 Findings Consistent with Post-Op Diagnosis Specimens Left femoral and tibial bone Complications none Disposition Disposition: Recovery Room Indications Iesha is a pleasant 71-year-old female who has been dealing with chronic increasing left knee pain. X-rays and clinical examination were diagnostic for advanced arthritis of the left knee. After failing conservative treatment, she elected proceed with a left total knee arthroplasty. Description of Procedure Implants used: I used a [employer] Person[employer] total knee arthroplasty system with a size 9 standard femur, F tibia, 31 oval patella, and a size 14 medial congruent polyethylene bearing. All components were cemented in place with Biomet cement. Iesha arrived [facility] for the above procedure. She was seen in the preoperative holding area and the operative extremity was identified and signed. She was given a preoperative antibiotic, TXA, a spinal anesthetic and an adductor nerve block. She was taken back to the operating room and laid on the table in supine position. She was given basic sedation. The operative knee was then prepped and draped in sterile fashion. A timeout was done, and the patient and the operative extremity was properly identified. A midline incision was made directly over the patella. Dissection was taken down to the extensor mechanism. A subvastus arthrotomy was used. The medial retinaculum was released and the fat pad was mostly excised. The knee was flexed and the ACL, PCL, and meniscus were removed. A drill was sent down the center of the femoral canal followed by an intramedullary henrik. Off that henrik a distal femoral cutting block was placed. 9 mm was resected off the distal femur at 5 of valgus. A posterior referencing AP sizing guide was then placed on the distal femur. The femur measured to be a size 9. 2 drill holes were placed in 3 of external rotation. A 4-in-1 cutting block was then impacted into place. Anterior, posterior, and chamfer cuts were then made. The proximal tibia was then exposed. An external tibial alignment guide was placed. A tibial cut guide was then anchored in place and the proximal tibia was then resected. The posterior aspect of the knee was then opened up and any additional meniscus fragments and osteophytes were removed. The tibia measured to be a size F. The tibial plate was then placed in the appropriate rotation and the tibia was drilled and punched. Trial components were then placed. I used a size 14 medial congruent polyethylene insert. The knee was brought through a full range of motion and felt to be stable. The peg holes for the femoral component were then drilled. The patella was then everted and 9 mm was resected off the posterior aspect of the patella. The patella measured to be a size 31 oval. 3 peg holes were then drilled. A trial patella was placed. The knee was once again brought through a full range of motion and felt to be stable. Trial components were then removed. The surrounding soft tissues were injected with 100 cc of an orthopedic pain control cocktail. All components were then cemented into place with Biomet cement. The final polyethylene insert was then snapped into place. Once cement was dry the tourniquet was deflated. Hemostasis was obtained. A dilute betadyne lavage was then done for 3 minutes. The joint was then irrigated with normal saline solution. The subvastus arthrotomy was then closed with #1 Vicryl suture. The skin was closed with 2-0 Vicryl, 3-0V lock suture, and ron. A soft compressive dressing was placed. She was then transferred to a hospital bed and taken to the postanesthesia care unit in stable condition. She tolerated the procedure well. Alberto Manuel PA-C, was present for the entire procedure. He was critical for patient positioning, prepping, draping, retraction exposure, wound closure and application of sterile dressing. I attest to the content of the Intraoperative Record and any orders documented therein. Any exceptions are noted below.
--- NOTE | 2021-10-17 13:29 | XRay Report ---
XR knee LT 1 or 2V routine HISTORY: 71 years-old Female Surgical Post Op [knee total joint arthroplasty COMPARISON: 09/16/2021 TECHNIQUE: 2 views of the left knee FINDINGS: Left knee total joint arthroplasty with patellar resurfacing. Anterior midline skin ron are noted along with expected postoperative soft tissue swelling and deep tissue air. Unchanged subcentimeter pretibial calcification. Arterial calcifications. No acute fracture, dislocation or unexpected opaque foreign body. IMPRESSION: Left knee total joint arthroplasty with expected postoperative changes. ACT 112: Negative or not required by law. The above report was generated using voice recognition software. It may contain grammatical, syntax o r spelling errors. Electronically signed by: Dc Mansfield M.D. 10/17/2021 1:28 PM
--- NOTE | 2021-10-17 13:35 | Anesthesiology Progress Note ---
Date of Service October 17, 2021 Anesthesia Post Procedure Vital Signs Vital Signs: Temp Pulse Pulse Resp BP Pulse Ox 10/17/21 13:25 76 13 104/59 L 100 10/17/21 13:16 36.6 C 81 19 95/52 L 100 10/17/21 09:15 36.3 C L 60 20 133/59 L 100 Transfer of Care Handoff Completed per policy Notes Mental Status: alert / awake / arousable Patient Amnestic to Procedure: Yes Nausea / Vomiting: adequately controlled Pain: adequately controlled Airway Patency, RR, SpO2: stable & adequate BP & HR: stable & adequate Hydration State: stable & adequate Neuraxial Anesthesia: was administered and sensory block is resolving Anesthetic Complications: no major complications apparent
[2021-10-17] MEDS ORDERED: PHARMACY GLYCEMIC MGMT CONSULT PRN (14:33)
[2021-10-17] MEDS ORDERED: METOCLOPRAMIDE HCL INJ 5 MG/ML 2 ML VIAL IV PRN (14:33)
[2021-10-17] MEDS ORDERED: oxyCODONE HCL IR 5 MG TAB (IMMEDIATE RELEASE) PO PRN (14:33)
[2021-10-17] MEDS ORDERED: PROMETHAZINE HCL 25 MG TAB PO PRN (14:33)
[2021-10-17] MEDS ORDERED: bisacodyL 10 MG SUPP PR PRN (14:33)
[2021-10-17] MEDS ORDERED: HYDROmorphone INJ 0.5 MG/0.5 ML SYR IV PRN (14:33)
[2021-10-17] MEDS ORDERED: MAGNESIUM HYDROXIDE SUSP 30 ML UDC PO PRN (14:33)
[2021-10-17] MEDS ORDERED: NALOXONE HCL 0.4 MG/1 ML VIAL/CARP IV PRN (14:33)
--- NOTE | 2021-10-17 14:42 | Pharmacy Report ---
Pharmacy Glycemic Short Note 2 - Date of Service October 17, 2021 - Glycemic Short BSG Results (Last 24 hours): 10/17/21 10/17/21 09:04 13:35 POC Glucose 101 H 134 H OUTPATIENT ANTIDIABETIC REGIMEN: * Tradjenta 5 mg daily * HbA1C = 6.3% (09/16/21) ASSESSMENT: * Ms Lyman is a 71 y/o F with a PMH of T2DM who presents for L knee surgery. * Patient's preop BSGs are 101-134 mg/dL. * Patient received dexamethasone 8 mg PO preop and dexamethasone 4 mg IV intraoperatively. * Due to steroid use, will give NPH 20 units x 1. Novolog weight-based stress of 3. * Overnight checks to ensure excellent coverage overnight. * Hold Tradjenta PLAN FOR INPATIENT GLYCEMIC CONTROL: * Hold outpatient oral diabetes medications * Basal insulin * NPH 20 units SQ x 1 * Bolus insulin * NovoLog per scale ACHS or Q6hrs while NPO * Goal Range: Low 110 mg/dL - High 140 mg/dL * Correction Factor: 25 mg/dL/unit * Nutritional / Prandial insulin per carb ratio of 1 unit per 7 grams CHO co nsumed
[2021-10-17] MEDS ORDERED: CARBOHYDRATES FOR HYPOGLYCEMIA PO PRN (14:45)
[2021-10-17] MEDS ORDERED: GLUCAGON FOR INJ 1 MG VIAL IM PRN (14:45)
[2021-10-17] MEDS ORDERED: DEXTROSE 50% 50 ML SYRINGE IV PRN (14:45)
[2021-10-17] MEDS ORDERED: GLUCOSE 40% GEL 15 GM TUBE PO PRN (14:45)
[2021-10-17] MEDS ORDERED: GLUCOSE 10 TABS/TUBE PO PRN (14:45)
[2021-10-17] MEDS: SODIUM CHLORIDE 0.9% 1000ML 1,000 ML IV SCH (15:12)
[2021-10-17] MEDS: KETOROLAC TROMETHAMINE 15 MG/ML VIAL IV SCH ×2 (15:12→21:15)
[2021-10-17] MEDS ORDERED: NovoLIN-N (NPH) PER UNIT CHARGE SQ ONE (16:30)
[2021-10-17] MEDS: ACETAMINOPHEN 500 MG TAB PO SCH (17:37)
[2021-10-17] MEDS: INSULIN ASPART PER UNIT SC SCH ×2 (17:44→21:23)
[2021-10-17] MEDS: ceFAZolin 2000MG 2,000 MG/15 ML SYR IV SCH (21:09)
[2021-10-17] MEDS: DOCUSATE SODIUM 100 MG CAP PO SCH (21:16)
[2021-10-17] MEDS: SENNA 8.6 MG TAB PO SCH (21:16)
[2021-10-18] MEDS: INSULIN ASPART PER UNIT SC SCH ×6 (00:14→21:39)
[2021-10-18] MEDS: SODIUM CHLORIDE 0.9% 1000ML 1,000 ML IV SCH (01:19)
[2021-10-18] MEDS: ALPRAZolam 0.25 MG TABLET PO PRN ×2 (01:38→23:33)
[2021-10-18] MEDS: KETOROLAC TROMETHAMINE 15 MG/ML VIAL IV SCH ×4 (04:03→21:32)
[2021-10-18] MEDS: ceFAZolin 2000MG 2,000 MG/15 ML SYR IV SCH (04:03)
[2021-10-18] MEDS: ACETAMINOPHEN 500 MG TAB PO SCH ×3 (06:12→21:32)
[2021-10-18 08:11] LABS: Creatinine Clr Calc Pharmacy 72.1 ml/min; Est GFR (African American) 94.5 ml/min; Est GFR (Non-African American) 81.5 ml/min
--- NOTE | 2021-10-18 08:31 | Orthopedic Progress Note ---
Date of Service October 18, 2021 Assessment & Plan (1) Status post left knee replacement: Overall she seems to be doing fairly well. She is not having too much pain in the left knee. She has been able to ambulate some on it. She is on Xarelto for DVT prophylaxis. She will be seen by physical therapy today for ambulation and range of motion exercises. We will keep her in the hospital today for physical therapy and pain control. We will plan for discharge to home tomorrow. Seda Julian was seen and examined at bedside this morning. Overall she is doing well. She is not having much pain in the left knee. She did have a little bit of a slip and fall in the bathroom last night. She did not injure her knee with the fall. She has been ambulating on it since. She has no complaints. Review of Systems All systems reviewed & are unremarkable except as noted in HPI & below. Physical Exam On physical examination of the left knee, the dressing is clean and dry. She is able to do a straight leg raise. She has active dorsiflexion plantarflexion of the left ankle. Sensations intact throughout.. Results & Data Results & Data Laboratory Results . Diagnostic Findings Postoperative x-rays of the left knee show the prosthesis to be in anatomic alignment without any evidence of fracture, desiccation, or loosening. PG Care Time/CCT Total # of Minutes Spent Total Time Spent with Patient: Total time spent is greater than 50% in coordination of care (as documented) at patient's floor/unit and/or counseling patient: Coding Level of Care Code 87717 Post Operative Follow-Up Diagnoses Status post left knee replacement Z96.652
[2021-10-18] MEDS ORDERED: RIVAROXABAN 20 MG TAB PO SCH (09:00)
[2021-10-18] MEDS: RIVAROXABAN 10 MG TABLET PO SCH (09:12)
[2021-10-18] MEDS: DOCUSATE SODIUM 100 MG CAP PO SCH ×2 (09:12→21:32)
[2021-10-18] MEDS: PANTOprazole 40 MG TAB PO SCH (09:12)
[2021-10-18] MEDS: MULTIVITAMIN TAB PO SCH (09:12)
[2021-10-18] MEDS: hydroCHLOROthiazide 25 MG TAB PO SCH (09:14)
[2021-10-18] MEDS: SENNA 8.6 MG TAB PO SCH (21:32)
[2021-10-19] MEDS: KETOROLAC TROMETHAMINE 15 MG/ML VIAL IV SCH ×2 (05:00→11:21)
[2021-10-19] MEDS: ACETAMINOPHEN 500 MG TAB PO SCH (05:00)
--- NOTE | 2021-10-19 08:03 | Orthopedic Progress Note ---
Date of Service October 19, 2021 Assessment & Plan (1) Status post left knee replacement: Overall she is doing well. She is having too much pain in the left knee. She will be seen by physical therapy again for ambulation and range of motion exercises. She is to be on Xarelto 10 mg daily for 7 days and then she can resume her 20 mg daily dosage. She can be discharged home later today. She will follow-up with orthopedics in 2 weeks. Subjective Iesha was seen and examined at bedside this morning. Overall she is doing fairly well. She is not having much pain in the left knee. She was able to participate well with physical therapy yesterday doing ambulation and range of motion exercises. Review of Systems All systems reviewed & are unremarkable except as noted in HPI & below. Physical Exam On physical examination of the left knee, the dressing is clean and dry. She has active dorsiflexion plantarflexion of her left ankle. Sensation is intact throughout.. Results & Data Results & Data Laboratory Results . Diagnostic Findings . PG Care Time/CCT Total # of Minutes Spent Total Time Spent with Patient: Total time spent is greater than 50% in coordination of care (as documented) at patient's floor/unit and/or counseling patient: Coding Level of Care Code 66306 Post Operative Follow-Up Diagnoses Status post left knee replacement Z96.652
--- NOTE | 2021-10-19 08:04 | Discharge Summary ---
Date of Service October 19, 2021 Admission HPI (Per Admitting) Iesha is a pleasant 71-year-old female who I did a right knee replacement on over a year ago. She has done well with that. Unfortunately, she is dealing with left knee pain. X-rays and clinical examination have been diagnostic for advanced arthritis. After failing conservative treatment, she elected to proceed with a left total knee arthroplasty. . Admission Exam (Per Admitting) On physical examination of the left knee, she has tenderness palpation over the distal medial femoral condyle and over the medial joint line. She has range of motion from 0 to 120 degrees. No instability. Principal Diagnosis Same as "Discharge Diagnosis" noted below under Discharge Instructions. Discharge Exam On physical examination of the left knee, the dressing is clean and dry. She has active dorsiflexion plantarflexion of her left ankle. Sensation is intact throughout.. Discharge Data Procedures Performed Operation Date: 10/17/21 11:10 Actual Procedures p Left Total Knee Arthroplasty, Cemented(Left) - Alberto Fonseca DO Ordered Studies 10/17/21 05:00 US - OR guided needle placemen Routine Hospital Course (1) Status post left knee replacement: On October 17, 2021 Iesha arrived to [facility] and underwent a left knee replacement without complication. She had a spinal anesthetic. Postoperatively she was started on Xarelto for DVT prophylaxis and transferred to the general orthopedic floors. Her hospital course was uneventful. On postop day #1, her vital signs were stable and her pain was well controlled. She was able to participate well with physical therapy doing ambulation and range of motion exercises. She was then discharged home. She will follow-up with orthopedics in 2 weeks. PG Care Time/CCT Total # of Minutes Spent Total Time Spent with Patient: Total time spent is greater than 50% in coordination of care (as documented) at patient's floor/unit and/or counseling patient: Discharge Plan Discharge Items Patient Disposition: Home - Home Health Services Reason For Visit: DJD Knee Left Discharge Diagnosis: Left knee replacement Activity: As commented below Non-emergency contact: Surgeon Call non-emergency contact if: your wound has increased redness and your wound has increased drainage Follow-up/Referrals: Phan Quinn [Primary Care Provider] - Diet: Regular Addtl Attending Provider Instructions: Activity and Therapy Recommendations: * If you are using [facility] then therapy will be provided at your home until they feel you have accomplished all of your goals. * If you are using [facility] then Physical Therapy will be provided until they feel you are ready to start Outpatient Physical Therapy. * If you are not using home therapy then Outpatient Physical Therapy should start about 3-5 days from your day of surgery. Therapy will last about 6-10 weeks * It is important not to put a pillow under your knee when you are relaxing or sleeping. It is just as important to make sure you are getting your knee perfectly straight as it is to regain your knee bend. * You were shown a series of exercises in the hospital. Do these exercises three times each day including the exercises you were shown in physical therapy. * Get up and walk several times each day. For the first four weeks, try not to stand or walk for more than one hour at a time. If you do stand or walk for more than one hour, you will not hurt anything, but your leg will likely swell. * As you feel comfortable, you may change from the walker or crutches to a cane and then to independent walking. Medications: * Narcotic You will likely be sent home from the hospital with a prescription for the narcotic pain medication that worked best throughout your stay. * Aspirin Most patients will be required to take Aspirin 81mg twice a day for 6 weeks after surgery. This is obtained [id number] and a prescription is not necessary. * Other medications may be prescribed for specific circumstances. If you have any questions, please call the office at . * Resume previous home medications unless otherwise instructed TEDs/Elastic Stockings: The white elastic stockings help limit swelling and prevent blood clots from forming in your legs.~ The more you wear them, the more they work. Wear them for six weeks. Dressing Care: The dressing can be changed after physical therapy on postop day #1. Daily dry dressing changes for a few days, especially if the incision is still draining some. If the incision is not draining then you may leave the ron open to air. If there is a little bit of drainage or if the ron are getting stuck on your clothing then cover the incision with a dry dressing. The ron will be removed at your 2 week follow-up appointment. Showering: You may shower 5 days from the day of surgery as long as the incision is no longer draining. You may shower with the ron exposed. Let soapy water run over the ron and pat them dry. Do not scrub or soak the incision. Things To Watch For: * Drainage from the incision site that occurs more than one week after your surgery. * Increased redness at the incision site. * Fever above 102 degrees Fahrenheit. * Unusual chest pain or shortness of breath. * Call [facility] at with any of the above problems Follow-Up Visit: Follow-up with Dr. Fonseca's PA (Alberto Manuel) 2-3 weeks after your day of surgery. He will remove your ron and answer any questions. If you have any additional questions or concerns, Dr Fonseca is usually in the office at the same time and will be available An appointment was probably scheduled when you signed-up for surgery in the office. If you have any questions call Office Instructions: More detailed instructions as well as Frequently Asked Questions were provided in a folder by our office when you signed-up for surgery. Please review these instructions when you get home. If you have any further questions or concerns, please feel free to call the office at [phone] Pending Studies at Discharge: No Stand-Alone Forms: [facility], Smoking Cessation Medications and DC Order Prescriptions: New oxycodone-acetaminophen 5-325 mg tablet 1 tab PO Q6H PRN (Reason: pain) Qty: 30 RF: 0 Continued hydrochlorothiazide 50 mg tablet 50 mg PO QAM RF: 0 alprazolam [Xanax] 0.25 mg tablet 0.25 mg PO BID PRN (Reason: Anxiety) RF: 0 pantoprazole 40 mg tablet,delayed release (DR/EC) 40 mg PO QAM RF: 0 cyanocobalamin (vitamin B-12) [Vitamin B-12] 1,000 mcg Tablet 1,000 mcg PO QAM RF: 0 Tradjenta 5 mg Tablet 5 mg PO QAM RF: 0 acetaminophen [Tylenol Arthritis] 650 mg Tablet Extended Release 1,300 mg PO Q12H PRN (Reason: Pain) RF: 0 multivitamin Tablet 1 tab PO QAM RF: 0 Xarelto 20 mg Tablet 20 mg PO QAM RF: 0 promethazine 12.5 mg Tablet 12.5 mg PO TID PRN (Reason: Nausea) RF: 0 Discharge Orders: Discharge Order (Routine); Ordered 10/19/21 Ordered By: Alberto Fonseca Admission Data Admit Date/Time: 10/17/21 13:18 Attending Provider: Alberto Fonseca Admit Provider: Alberto Fonseca Primary Care Provider: Phan Quinn
[2021-10-19] MEDS: INSULIN ASPART PER UNIT SC SCH ×2 (08:52→12:16)
[2021-10-19] MEDS: PANTOprazole 40 MG TAB PO SCH (08:55)
[2021-10-19] MEDS: MULTIVITAMIN TAB PO SCH (08:55)
[2021-10-19] MEDS: DOCUSATE SODIUM 100 MG CAP PO SCH (08:55)
[2021-10-19] MEDS: RIVAROXABAN 10 MG TABLET PO SCH (08:55)
[2021-10-19] MEDS: hydroCHLOROthiazide 25 MG TAB PO SCH (08:55)
== END 2021-10-19 15:29 | disposition home or self-care (01) ==
LOC: 3E 08:41 → ASU 08:41